=== PATIENT | female | born 1995 | race Two or more races ===

== ENCOUNTER 2018-12-09 16:21 | Emergency (ER) | payer OTHER ==
[~2018-12-09] VITALS: Ht 160 cm; Wt 89.8 kg
[2018-12-09 21:19] VITALS: BP 108/84
== END 2018-12-09 21:19 | disposition home or self-care (01) ==
LOC: ED 16:21
DX: N39.0 Urinary tract infection, site not specified (principal); M79.10 Myalgia, unspecified site
CPT/HCPCS: Q0162